=== PATIENT | female | born 2000 | race Caucasian/White ===

== ENCOUNTER 2021-08-28 11:24 | Emergency (ER) | payer OTHER ==
[~2021-08-28] VITALS: Ht 162.6 cm; Wt 59.0 kg
--- NOTE | ~2021-08-28 | EMS ---
[facility] [address] [place] [address] EMS Patient Care Report Name: MARLENE ATKINSON Room #: REG SARA Galindo#: [id number] Admission: 08/28/21 Attend Phys: Discharge: Date of : 01 Report #: [id number] THIS REPORT FOR: //name// Report Transmitted: 08/28/2021 11:58 EMS Care Summary [place], [place]/[facility] Incident [phone] @ 08/28/2021 10:42 Incident Location [address] [place] [id number] Patient MARLENE ATKINSON Female, 21 Years 2000 Patient Address homeless Patient History Behavioral/Psychiatric Disorder,Substance Abuse, Chief Complaint psych Disposition Transported No Lights/[place] Dispatch Reason Overdose/Poisoning/Ingestion Transported To [facility] Narrative ems met kc on scene. staff stated pt has been hostile with staff and has been destroying facility property and has to leave. [facility] reported they are not performing a cit on pt. pt met in hallway. pt a&ox4 gcs 15 and presented agitated. pt walked to ambulance. 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 in ambulance pt stated she has been non complaint with her bipolar meds x several months and used iv methamphetamine yesterday 08/27/2021. pt agreed to be transported to [facility] to have an eval. pt denied si. pt is still agitated by all of ems' questions. pt gave little info and stated she is done responding and refused to answer any [facility] [address] [place] [address] EMS Patient Care Report Name: MARLENE ATKINSON Room #: REG Mateo#: [id number] Admission: 08/28/21 Attend Phys: Discharge: Date of : 01 Report #: [id number] further info and removed the nibp and pulse oximiter. pt was transferred onto ems cot and was secured in a semi fowlers position without incident. pt was transported non emergent. transport was uneventful and pt rested on ems cot. pt care was transferred to appropriate staff and ems goes back in service. Initial Vitals @11:21R: 20,GCS: 15, @11:08P: 100,R: 20,BP: 96/58,Pain: 0/10,GCS: 15,SpO2: 96,Revised Trauma: 12, Assessments @11:13MENTAL:No Abnormalities,SKIN:No Abnormalities,HEENT:Head/Face: No Abnormalities,Eyes: No Abnormalities,Neck/Airway: No Abnormalities,LUNG SOUNDS:General: No Abnormalities,Left Upper: No Abnormalities,Right Upper: No Abnormalities,Left Lower: No Abnormalities,Right Lower: No Abnormalities,ABDOMEN:General: No Abnormalities,Left Upper: No Abnormalities,Right Upper: No Abnormalities,Left Lower: No Abnormalities,Right Lower: No Abnormalities,PELVIS//GI:No Abnormalities,EXTREMITIES:Left Arm: No Abnormalities,Right Arm: No Abnormalities,Left Leg: No Abnormalities,Right Leg: No Abnormalities,PULSE:NEURO:No Abnormalities,@11:21MENTAL:No Abnormalities,SKIN:No Abnormalities,HEENT:Head/Face: No Abnormalities,Eyes: No Abnormalities,Neck/Airway: No Abnormalities,LUNG SOUNDS:General: No Abnormalities,Left Upper: No Abnormalities,Right Upper: No Abnormalities,Left Lower: No Abnormalities,Right Lower: No Abnormalities,ABDOMEN:General: No Abnormalities,Left Upper: No Abnormalities,Right Upper: No Abnormalities,Left Lower: No Abnormalities,Right Lower: No Abnormalities,PELVIS//GI:No Abnormalities,EXTREMITIES:Left Arm: No Abnormalities,Right Arm: No Abnormalities,Left Leg: No Abnormalities,Right Leg: No Abnormalities,PULSE:NEURO:No Abnormalities, Impression Behavioral/psychiatric episode Procedures @11:13 ALS Assessment Response: UnchangedSucceeded Timeline 10:42,Call Received 10:42,Dispatch Notified 10:42,Dispatched 10:43,En Route 11:01,On Scene 11:02,At Patient 11:08,BP: 96/58 M,PULSE: 100,RR: 20 R,SPO2: 96 Ox,ETCO2: ,BG: ,PAIN: 0,GCS: 15, 11:11,Depart Scene 11:13,ALS Assessment,Response: UnchangedSucceeded, [facility] [address] [place] [address] EMS Patient Care Report Name: GEOVANY ATKINSONH Room #: REG Mateo#: [id number] Admission: 08/28/21 Attend Phys: Discharge: Date of : 01 Report #: [id number] 11:21,BP: / M,PULSE: ,RR: 20 R,SPO2: Ox,ETCO2: ,BG: ,PAIN: ,GCS: 15, 11:22,At Destination 11:33,Call Closed Disclaimer v1.1 Copyright 2021 [employer] This EMS Care Summary contains data elements from the applicable legal record (which may be displayed differently). It is designed to provide pertinent information for the following purposes: continuity of care, clinical quality, and state data reporting. The complete legal record is available to ED staff and administrators of the receiving hospital in [employer]'s Patient Tracker. All data is provided "as is."
[2021-08-28 16:03] VITALS: BP 128/70
== END 2021-08-28 16:05 | disposition left against medical advice (07) ==
LOC: ER 11:24
DX: F19.239 Other psychoactive substance dependence with withdrawal, unspecified (principal); F17.210 Nicotine dependence, cigarettes, uncomplicated